=== PATIENT | male | born 1970 | race Caucasian/White ===

== ENCOUNTER 2017-03-16 21:56 | Emergency (ER) | payer OTHER ==
[2017-03-16 21:57] VITALS: BMI 28.5
[2017-03-16 22:16] VITALS: TEMP 97.9; O2SAT 98
[2017-03-16] MEDS ORDERED: Sodium Chloride 0.9% 1,000 ML ONE (22:24)
[2017-03-16] MEDS ORDERED: Sodium Chloride 0.9% 1,000 ML IV ONE (23:16)
--- NOTE | 2017-03-16 23:16 | C.PDOC ---
History Of Present Illness A 46 y/o male who returned from [place], c/o abdominal pain and diarrhea for 4 days. Pt reports decreased PO intake and greater than 10 loose bowel movements. Pt denies fever, chills, nausea, vomiting, dizziness, or any other complaints. Time Seen by Provider: 03/16/17 23:15 Chief Complaint (Nursing): Abdominal Pain History Per: Patient History/Exam Limitations: no limitations Onset/Duration Of Symptoms: Days Current Symptoms Are (Timing): Still Present Context: Travel ([place]) Severity: Mild Location Of Pain/Discomfort: Diffuse Radiation Of Pain To:: None Quality Of Discomfort: Dull Associated Symptoms: Diarrhea. denies: Fever, Chills, Nausea, Vomiting Exacerbating Factors: None Alleviating Factors: None Last Bowel Movement: Today Recent travel outside of the [place]: Yes ([place]) Additional History Per: Patient Past Medical History Reviewed: Historical Data, Nursing Documentation, Vital Signs Vital Signs: Last Vital Signs Temp 97.9 F 03/16/17 22:13 Pulse 68 03/16/17 22:13 Resp 20 03/16/17 22:13 BP 129/79 03/16/17 22:13 Pulse Ox 98 03/17/17 01:53 - Medical History PMH: Gastritis Surgical History: Endoscopy - [facility] Procedures IMMOBILIZ/WOUND ATTN NEC (04/20/13) TETANUS TOXOID ADMINIST (04/20/13) Family History: States: Unknown Family Hx - Social History Hx Tobacco Use: No Hx Alcohol Use: No Hx Substance Use: No - Immunization History Hx Tetanus Toxoid Vaccination: No Hx Influenza Vaccination: Yes Hx Pneumococcal Vaccination: No Review Of Systems Constitutional: Negative for: Fever, Chills Eyes: Negative for: Vision Change ENT: Negative for: Throat Pain Cardiovascular: Negative for: Chest Pain, Palpitations Gastrointestinal: Positive for: Abdominal Pain, Diarrhea. Negative for: Nausea , Vomiting Genitourinary: Negative for: Dysuria Musculoskeletal: Negative for: Back Pain Skin: Negative for: Lesions Neurological: Negative for: Weakness, Dizziness Psych: Negative for: Anxiety Physical Exam - Physical Exam Appears: Non-toxic, No Acute Distress Skin: Warm, Dry Head: Normacephalic Eye(s): bilateral: Normal Inspection Oral Mucosa: Moist Throat: Normal, No Exudate Neck: Trachea Midline, Supple Chest: Symmetrical Cardiovascular: Rhythm Regular Respiratory: No Rales, No Rhonchi, No Wheezing Gastrointestinal/Abdominal: Soft, Tenderness (Mild tenderness), No Guarding, No Rebound Neurological/Psych: Oriented x3 (Awake and alert), Normal Speech Gait: Steady ED Course And Treatment - Laboratory Results Result Diagrams: 03/16/17 23:27 03/16/17 23:27 O2 Sat by Pulse Oximetry: 98 (RA) Pulse Ox Interpretation: Normal Medical Decision Making Medical Decision Making: Upon provider reevaluation patient is feeling better, is medically stable, and requires no further treatment in the ED at this time. Patient will be discharged home . Counseling was provided and all questions were answered regarding diagnosis and need for follow up with the referred clinic. There is agreement to discharge plan. Return if symptoms persist or worsen. Disposition Counseled Patient/Family Regarding: Studies Performed, Diagnosis - Disposition Referrals: [facility] [Outside] [facility] [Outside] Disposition: HOME/ ROUTINE Disposition Time: 23:15 Condition: FAIR Additional Instructions: Please return if symptoms recur. May use Kaopectate for the diarrhea Instructions: Pancreatitis (DC), Acute Diarrhea (ED) Forms: Work Excuse - Clinical Impression Clinical Impression: Abdominal pain, Diarrhea, Pancreatitis - Scribe Statement The provider has reviewed the documentation as recorded by the Scribe iJn draper All medical record entries made by the Scribe were at my direction and personally dictated by me. I have reviewed the chart and agree that the record accurately reflects my personal performance of the history, physical exam, medical decision making, and the department course for this patient. I have also personally directed, reviewed, and agree with the discharge instructions and disposition.
[2017-03-16 23:30] LABS: BASO % 0.4 % (0.0-2.0); EOS # 0.1 K/uL (0.0-0.7); EOS % 1.5 % (0.0-4.0); HEMATOCRIT 43.6 % (35.0-51.0); LYMPH # 3.1 K/uL (1.0-4.3); LYMPH % 36.6 % (20.0-40.0); MEAN CELL VOLUME 88.8 fL (80.0-94.0); MEAN CORPUSCULAR HEMOGLOBIN 31.4 pg (27.0-31.0); MEAN CORPUSCULAR HGB CONC 35.3 g/dL (33.0-37.0); MONO # 1.2 K/uL (0.0-0.8); NRBC % 0.1 % (0.0-2.0); RED CELL DISTRIBUTION WIDTH 12.9 % (11.5-14.5); WHITE BLOOD COUNT 8.5 K/uL (4.8-10.8)
[2017-03-16 23:43] LABS: CHLORIDE 100 mmol/L (98-107); POTASSIUM 3.8 mmol/L (3.6-5.2); SODIUM 138 mmol/L (132-148)
[2017-03-16 23:45] LABS: BILIRUBIN,TOTAL 0.6 mg/dL (0.2-1.3); GFR AFRICAN-AMERICAN > 60
[2017-03-16 23:46] LABS: ALB/GLOB RATIO 1.2 (1.0-2.1); ALKALINE PHOSPHATASE 88 U/L (38-126); ALT/SGPT 33 U/L (21-72); AST/SGOT 32 U/L (17-59); BLOOD UREA NITROGEN 18 mg/dL (9-20); CALCIUM 8.7 mg/dl (8.6-10.4); CARBON DIOXIDE 27 mmol/L (22-30); GLUCOSE,RANDOM 117 mg/dL (75-110); TOTAL PROTEIN 7.5 g/dL (6.3-8.3)
[2017-03-17] MEDS ORDERED: Iohexol 350mg/ml 100 ML ONE (00:11)
[2017-03-17 00:46] LABS: RBC URINE 1 /hpf (0-3); URINE BILIRUBIN NEGATIVE (NEGATIVE); URINE BLOOD 1+ (NEGATIVE); URINE COLOR Straw (YELLOW); URINE GLUCOSE (UA) NORMAL (Normal); URINE KETONE NEGATIVE (NEGATIVE); URINE LEUKOCYTE ESTERASE NEG Leu/uL (Negative); URINE PROTEIN NEGATIVE (NEGATIVE); URINE UROBILINOGEN NORMAL mg/dL (0.2-1.0)
--- NOTE | 2017-03-17 00:55 | CT ---
EXAM: CT Abdomen and Pelvis With Intravenous Contrast CLINICAL HISTORY: 46 years old, male; Signs and symptoms; Other: Diarrhea; Additional info: Abd pain, elevated lipase TECHNIQUE: Axial computed tomography images of the abdomen and pelvis with intravenous contrast. This CT exam was performed using one or more of the following dose reduction techniques: automated exposure control, adjustment of the mA and/or kV according to patient size, and/or use of iterative reconstruction technique. Coronal and sagittal reformatted images were created and reviewed. CONTRAST: 100 mL of omnipaque 350 administered intravenously. EXAM DATE/TIME: 03/16/2017 11:49 PM COMPARISON: There are no prior studies for comparison. FINDINGS: Lower thorax: Heart size is normal. There is minimal atelectasis in the lung bases ABDOMEN: Liver: There is fatty infiltration of the liver. Gallbladder and bile ducts: Gallbladder is collapsed. Common bile duct is unremarkable. Pancreas: Pancreas is mildly atrophic. Spleen: Spleen is unremarkable. There is a tiny accessory spleen in the left upper quadrant. Adrenals: unremarkable Kidneys and ureters: unremarkable Stomach and bowel: Stomach is partially distended. Rotation is normal. Small bowel is mildly distended. There is no obstruction. There is mild fecalization of the distal ileum. Appendix is unremarkable.Colon is incompletely distended which limits evaluation. There is scattered diverticulosis Appendix: See stomach and bowel PELVIS: Bladder: unremarkable Reproductive: Seminal vesicles and prostate are unremarkable. ABDOMEN and PELVIS: Intraperitoneal space:There is no free air or free fluid. Bones/joints: There are degenerative changes in the osseus structures. Soft tissues: As a small amount of fluid and inflammation in the right inguinal region. Small umbilical hernia Vasculature: There are vascular calcifications. Lymph nodes: There is no pathologic adenopathy. IMPRESSION: No acute solid visceral or bowel abnormality, no CT findings of appendicitis or diverticulitis; nonspecific inflammation and fluid in the right inguinal region
[2017-03-17 01:58] VITALS: BP 138/85; PULSE 78; RESP 16
== END 2017-03-17 01:57 | disposition home or self-care (01) ==
LOC: C.ER 21:56
DX: K85.90 Acute pancreatitis without necrosis or infection, unspecified (principal); R10.9 Unspecified abdominal pain; R19.7 Diarrhea, unspecified
CPT/HCPCS: 74177; 80053; 81001; 83690; 85025; 96361; 96374; 96375; 99284; J2405; J7040; Q9967

== ENCOUNTER 2018-07-06 07:28 | Day surgery (SDC) | payer OTHER ==
[2018-07-06] MEDS ORDERED: Lactated Ringer's 500 ML IV SCH (08:45)
[2018-07-06] MEDS ORDERED: Midazolam 2 MG/2 ML VIAL ONE (08:48)
[2018-07-06] MEDS ORDERED: Propofol 10 mg/ml Inj (20 ML) ONE (08:48)
--- NOTE | 2018-07-06 08:48 | CP.SDSHP ---
Same Day Surgery H & P - History Proposed Procedure: EGD Pre-Op Diagnosis: epigastric pain and tenderness - Previous Medical/Surgical History Misc: Other (Gerd, H pylori gastritis) Previous Surgical History: None - Allergies Allergies: Allergies No Known Allergies Allergy (Verified 07/06/18 07:47) - Physical Exam Vital Signs: Vital Signs 07/06/18 07:48 Temperature 97.8 F Pulse Rate 51 L Respiratory 19 Rate Blood Pressure 118/77 O2 Sat by Pulse 99 Oximetry Mental Status: Alert & Oriented x3 Neuro: WNL Heart: WNL Lungs: WNL GI: WNL - Impression Impression: epigastric pain and tenderness Pt. Evaluated Today:Candidate for Anesthesia & Procedure: Yes - Date & Time Date: 07/06/18 Time: 08:47 Short Stay Discharge - Short Stay Discharge Admitting Diagnosis/Reason for Visit: EPIGASTRIC PAIN / TENDERNESS / [id number]-[id number] Disposition: HOME/ ROUTINE
[2018-07-06] MEDS ORDERED: Pantoprazole 40 mg EC Tab PO ONE (09:00)
[2018-07-06 09:24] VITALS: PULSE 50; TEMP 97.5
[2018-07-06 09:45] VITALS: RESP 14; O2SAT 96
[2018-07-06 09:54] VITALS: BP 100/57
== END 2018-07-06 09:52 | disposition home or self-care (01) ==
LOC: C.ENDO 07:28
PROVIDERS: ATTEND Internal Medicine Gastroenterology
DX: R10.816 Epigastric abdominal tenderness (principal); R10.13 Epigastric pain; B96.81 Helicobacter pylori [H. pylori] as the cause of diseases classified elsewhere; K44.9 Diaphragmatic hernia without obstruction or gangrene
CPT/HCPCS: 43239; 88305; 88312; 88313; 88342; J2250; J2704; J7120